=== PATIENT | female | born 1950 | race Caucasian/White ===

== ENCOUNTER 2020-10-12 09:28 | Observation (INO) | payer BC, MEDICARE ==
[~2020-10-12] VITALS: Ht 167.6 cm; Wt 111.6 kg
--- NOTE | 2020-10-12 09:54 | RAD ---
AP portable chest radiograph 10/12/2020 Clinical History: Chest pain. An AP erect portable digital radiograph of the chest was obtained. The cardiac silhouette is mildly enlarged. The thoracic aorta is tortuous. Atherosclerotic calcificat ion of the thoracic aorta is seen. No acute pulmonary infiltrate is noted. No pneumothorax or pleural effusion is seen. Degenerative changes are seen involving the thoracic spine and both shoulders. IMPRESSION: No acute abnormality is seen. Electronically signed by: Gabriel Brown MD (10/12/2020 9:52 AM) [id number]
[2020-10-12] MEDS ORDERED: NITROGLYCERIN OINT 1 GM PACKET. TP ONE (10:00)
[2020-10-12 10:17] LABS: BASO # 0.1 x10^3/uL (0.0-0.2); BASO % 1 % (0-3); EOS # 0.1 x10^3/uL (0.0-0.7); EOS % 1 % (0-3); HEMATOCRIT 39.7 % (36.0-47.0); HEMOGLOBIN 13.2 g/dL (12.0-15.5); LYMPH # 2.1 x10^3/uL (1.0-4.8); LYMPH % 28 % (24-48); MEAN CORPUSCULAR HEMOGLOBIN 29 pg (25-35); MEAN CORPUSCULAR HGB CONC 33 g/dL (31-37); MEAN CORPUSCULAR VOLUME 87 fL (79-100); MONO # 0.6 x10^3/uL (0.0-1.1); MONO % 8 % (0-9); NEUT # 4.6 x10^3/uL (1.8-7.7); NEUT % 62 % (31-73); PLATELET COUNT 292 x10^3/uL (140-400); RED BLOOD COUNT 4.57 x10^6/uL (3.50-5.40); RED CELL DISTRIBUTION WIDTH 13.2 % (11.5-14.5); WHITE BLOOD COUNT 7.4 x10^3/uL (4.0-11.0)
[2020-10-12 10:24] LABS: CALCIUM 9.6 mg/dL (8.5-10.1); CREATININE 0.8 mg/dL (0.6-1.0); GFR 70.9; POTASSIUM 4.1 mmol/L (3.5-5.1)
[2020-10-12 10:30] LABS: ALBUMIN 3.7 g/dL (3.4-5.0); TOTAL BILIRUBIN 0.7 mg/dL (0.2-1.0); TOTAL PROTEIN 7.5 g/dL (6.4-8.2)
[2020-10-12] MEDS ORDERED: hydrALAZINE 20 MG/ML VIAL. IVP ONE (12:15)
--- NOTE | 2020-10-12 12:22 | PHYS DOC ---
Past Medical History Past Medical History: Arthritis, High Cholesterol, Hypertension Past Surgical History: Smoking Status: Never Smoker Alcohol Use: None General Adult EDM: Chief Complaint: CHEST PAIN-CARDIAC NATURE HPI: HPI: Patient is a 70 year old patient who presented to ER due to substernal chest pain that radiated to her left shoulder, associated with trouble breathing with exertion. Symptom of the chest pain described as a pressure and heaviness. Patient has history of hypertension, COVID-19 infection last May. Patient also had COVID-19 vaccine as well. Patient denies any history of blood clot disorder, denies any history of diabetic. Patient denies any history of coronary artery disease.. Patient states the symptoms have been off and on for several weeks but became persistent since last night. Patient denies any cough or fever Review of Systems: Review of Systems: Constitutional: Denies fever or chills. [] Eyes: Denies change in visual acuity. [] HENT: Denies nasal congestion or sore throat. [] Respiratory: Denies cough or shortness of breath. [] Cardiovascular: Positive for chest pain, no edema GI: Denies abdominal pain, nausea, vomiting, bloody stools or diarrhea. [] : Denies dysuria. [] Musculoskeletal: Denies back pain or joint pain. [] Integument: Denies rash. [] Neurologic: Denies headache, focal weakness or sensory changes. [] Endocrine: Denies polyuria or polydipsia. [] Lymphatic: Denies swollen glands. [] Psychiatric: Denies depression or anxiety. [] Heart Score: C/O Chest Pain: Yes HEART Score for Chest Pain: HEART Score for Chest Pain Response (Comments) Value History Moderately Suspicious 1 ECG Nonspecific Repolarizatio 1 Age > 65 2 Risk Factors >3 Risk Factors or Hx CAD 2 Troponin < Normal Limit 0 Total 6 Risk Factors: Risk Factors: DM, Current or recent (<one month) smoker, HTN, HLP, family history of CAD, obesity. Risk Scores: Score 0 - 3: 2.5% MACE over next 6 weeks - Discharge Home Score 4 - 6: 20.3% MACE over next 6 weeks - Admit for Clinical Observation Score 7 - 10: 72.7% MACE over next 6 weeks - Early Invasive Strategies Current Medications: Current Medications Medications (Trade) Dose Ordered Sig/Bonnie Start Time Stop Time Status Last Admin Dose Admin Hydralazine HCl (Apresoline Inj) 10 mg 1X ONCE 10/12/20 12:15 10/12/20 12:16 UNV Nitroglycerin (Nitro-Bid Oint) 1 inch 1X ONCE 10/12/20 10:00 10/12/20 10:14 DC 10/12/20 10:23 1 INCH Allergies: Allergies: Allergies Coded Allergies Type Severity Reaction Last Updated Verified Penicillins Adverse Reaction Mild Diarrhea 10/12/20 Yes Physical Exam: PE: Constitutional: Well developed, well nourished, no acute distress, non-toxic appearance. [] HENT: Normocephalic, atraumatic, bilateral external ears normal, oropharynx moist, no oral exudates, nose normal. [] Eyes: PERRLA, EOMI, conjunctiva normal, no discharge. [] Neck: Normal range of motion, no tenderness, supple, no stridor. [] Cardiovascular:Heart rate regular rhythm, no murmur [] Lungs & Thorax: Bilateral breath sounds clear to auscultation [] Abdomen: Bowel sounds normal, soft, no tenderness, no masses, no pulsatile elizabeth s. [] Skin: Warm, dry, no erythema, no rash. [] Back: No tenderness, no CVA tenderness. [] Extremities: No tenderness, no cyanosis, no clubbing, ROM intact, no edema. [] Neurologic: Alert and oriented X 3, normal motor function, normal sensory function, no focal deficits noted. [] Psychologic: Affect normal, judgement normal, mood normal. [] Current Patient Data: Labs: Laboratory Tests Test 10/12/20 09:50 White Blood Count 7.4 x10^3/uL (4.0-11.0) Red Blood Count 4.57 x10^6/uL (3.50-5.40) Hemoglobin 13.2 g/dL (12.0-15.5) Hematocrit 39.7 % (36.0-47.0) Mean Corpuscular Volume 87 fL (79-100) Mean Corpuscular Hemoglobin 29 pg (25-35) Mean Corpuscular Hemoglobin Concent 33 g/dL (31-37) Red Cell Distribution Width 13.2 % (11.5-14.5) Platelet Count 292 x10^3/uL (140-400) Neutrophils (%) (Auto) 62 % (31-73) Lymphocytes (%) (Auto) 28 % (24-48) Monocytes (%) (Auto) 8 % (0-9) Eosinophils (%) (Auto) 1 % (0-3) Basophils (%) (Auto) 1 % (0-3) Neutrophils # (Auto) 4.6 x10^3/uL (1.8-7.7) Lymphocytes # (Auto) 2.1 x10^3/uL (1.0-4.8) Monocytes # (Auto) 0.6 x10^3/uL (0.0-1.1) Eosinophils # (Auto) 0.1 x10^3/uL (0.0-0.7) Basophils # (Auto) 0.1 x10^3/uL (0.0-0.2) Sodium Level 141 mmol/L (136-145) Potassium Level 4.1 mmol/L (3.5-5.1) Chloride Level 103 mmol/L (98-107) Carbon Dioxide Level 28 mmol/L (21-32) Anion Gap 10 (6-14) Blood Urea Nitrogen 16 mg/dL (7-20) Creatinine 0.8 mg/dL (0.6-1.0) Estimated GFR (Cockcroft-Gault) 70.9 BUN/Creatinine Ratio 20 (6-20) Glucose Level 157 mg/dL (70-99) H Calcium Level 9.6 mg/dL (8.5-10.1) Magnesium Level 2.0 mg/dL (1.8-2.4) Total Bilirubin 0.7 mg/dL (0.2-1.0) Aspartate Amino Transferase (AST) 16 U/L (15-37) Alanine Aminotransferase (ALT) 20 U/L (14-59) Alkaline Phosphatase 108 U/L (46-116) Troponin I Quantitative < 0.017 ng/mL (0.000-0.055) [id number]-Type Natriuretic Peptide 744 pg/mL (0-124) H Total Protein 7.5 g/dL (6.4-8.2) Albumin 3.7 g/dL (3.4-5.0) Albumin/Globulin Ratio 1.0 (1.0-1.7) Lipase 107 U/L (73-393) Laboratory Tests 10/12/20 09:50 Laboratory Tests 10/12/20 09:50 Vital Signs: Vital Signs Date Time Temp Pulse Resp B/P (MAP) Pulse Ox O2 Delivery O2 Flow Rate FiO2 10/12/20 10:23 66 235/97 10/12/20 09:35 98.4 22 97 Room Air 98.4 EKG: EKG: EKG was done at 937, heart rate 66 bpm, sinus rhythm, no ST segment elevation, normal axis. [] Radiology/Procedures: Radiology/Procedures: [][facility] [address] [place] [address] IMAGING REPORT Signed PATIENT: ARACELY CURRY ACCOUNT: [id number] : 1950 LOCATION: ER AGE: 70 SEX: F EXAM STATUS: PRE ER ORD. PHYSICIAN: MIKE TAYLOR DO REASON: CHEST PAIN PROCEDURE: PORTABLE CHEST 1V AP portable chest radiograph 10/12/2020 Clinical History: Chest pain. An AP erect portable digital radiograph of the chest was obtained. The cardiac silhouette is mildly enlarged. The thoracic aorta is tortuous. Atherosclerotic calcification of the thoracic aorta is seen. No acute pulmonary infiltrate is noted. No pneumothorax or pleural effusion is seen. Degenerative changes are seen involving the thoracic spine and both shoulders. IMPRESSION: No acute abnormality is seen. Electronically signed by: Gabriel Brown MD (10/12/2020 9:52 AM) [id number] DICTATED and SIGNED BY: GABRIEL BROWN MD DATE: 10/12/20 [id number] Course & Med Decision Making: Course & Med Decision Making Pertinent Labs and Imaging studies reviewed. (See chart for details) Patient is a 70-year-old female who presented to ER due to chest pain, EKG and cardiac enzyme came back normal so far. Patient was found to be hypertensive. Patient was given medication in the ER to reduce the blood pressure. Her chest pain was improved significantly with nitroglycerin paste on her chest. Patient be admitted to hospital for further evaluation and treatment Dragon Disclaimer: Dragon Disclaimer: This electronic medical record was generated, in whole or in part, using a voice recognition dictation system. Departure Departure Impression: Primary Impression: Chest pain Additional Impression: Hypertension Disposition: 09 ADMITTED INPATIENT Admitting Physician: JOHN (Dr. VERNON) Condition: STABLE Referrals: FLOR SINGLETON MD (PCP) MIKE TAYLOR DO Oct 12, 2020 12:21
[2020-10-12] MEDS ORDERED: BISACODYL 10 MG SUPP.RECT. PR PRN (12:45)
[2020-10-12] MEDS ORDERED: MAGNESIUM HYDROXIDE 2,400 MG/30 ML ORAL.SUSP. PO PRN (12:45)
[2020-10-12] MEDS ORDERED: ONDANSETRON PF 4 MG/2 ML VIAL. IVP PRN (12:45)
[2020-10-12] MEDS ORDERED: NITROGLYCERIN SUBLINGUAL 0.4 MG BOTTLE OF 25. SL PRN (12:45)
[2020-10-12] MEDS ORDERED: CALCIUM CARBONATE 500 MG TAB.CHEW PO PRN (12:45)
[2020-10-12] MEDS ORDERED: ZOLPIDEM 5 MG TABLET. PO PRN (12:45)
[2020-10-12] MEDS ORDERED: MAG HYDROX/ALUMINUM HYD/SIMETH 30 ML ORAL.SUSP PO PRN (12:45)
[2020-10-12] MEDS ORDERED: ACETAMINOPHEN 325 MG TABLET. PO PRN (12:45)
--- NOTE | 2020-10-12 12:52 | PDOC1 ---
History and Physical Date of Admission Date of Admission DATE: 10/12/20 TIME: 12:42 Identification/Chief Complaint Chief Complaint Chest pain Source Source: Patient History of Present Illness History of Present Illness Patient is a 70-year-old female with past medical history hypertension, hyperlipidemia, arthritis, who presents to the ED with complaints of interm ittent chest pain for the past week. She describes her pain more as chest pressure. She also admits to associated shortness of breath with exertion. She denies any leg swelling. In ED her symptoms improved with Nitropaste. Blood pressure was significantly elevated at 235/97 mmHg. She states she has been compliant with her home blood pressure medications; she has a home blood pressure cuff and states blood pressure normally runs between 140s/80 mmHg, however her home blood pressure cuff has not been working recently. Initial troponin <0.[address] changes on EKG. She specifically came to the ED today out of concern for her symptoms and the fact that her son-in-law was treated well in the past by Dr. Yap. Will admit patient for further medical management. Past Medical History Past Medical History Hypertension, hyperlipidemia, arthritis Past Surgical History Past Surgical History: Family History Family History: Heart Disease Social History Smoke: No ALCOHOL: none Drugs: None Current Problem List Problem List Problems Medical Problems: (1) Chest pain Status: Acute (2) Hypertension Status: Acute Current Medications Current Medications Current Medications Nitroglycerin (Nitro-Bid Oint) 1 inch 1X ONCE TP Last administered on 09/25 02/14at 10:23; Start 10/12/20 at 10:00; Stop 10/12/20 at 10:14; Status DC Hydralazine HCl (Apresoline Inj) 10 mg 1X ONCE IVP Last administered on 10/12/20at 12:39; Start 10/12/20 at 12:15; Stop 10/12/20 at 12:16; Status DC Hydralazine HCl (Apresoline Inj) 10 mg PRN Q2MIN PRN IVP HYPERTENSION; Start 10/12/20 at 12:45; Status UNV Ondansetron HCl (Zofran) 4 mg PRN Q6HRS PRN IVP NAUSEA/VOMITING; Start 10/12/20 at 12:45; Status UNV Al Hydroxide/Mg Hydroxide (Mylanta Plus Xs) 30 ml PRN Q3HRS PRN PO HEARTBURN / GAS; Start 10/12/20 at 12:45; Status UNV Calcium Carbonate/ Glycine (Tums) 500 mg PRN Q3HRS PRN PO UPSET STOMACH; Start 10/12/20 at 12:45; Status UNV Zolpidem Tartrate (Ambien) 5 mg PRN QHS PRN PO INSOMNIA, MAY REPEAT IN 1HR; Start 10/12/20 at 12:45; Status UNV Morphine Sulfate (Morphine Sulfate) 2 mg PRN Q1HR PRN IV PAIN; Start 10/12/20 at 12:45; Status UNV Acetaminophen (Tylenol) 650 mg PRN Q6HRS PRN PO Headaches, Temp > 101.5F; Start 10/12/20 at 12:45; Status UNV Magnesium Hydroxide (Milk Of Magnesia) 2,400 mg PRN Q12HR PRN PO CONSTIPATION; Start 10/12/20 at 12:45; Status UNV Bisacodyl (Dulcolax Supp) 10 mg PRN DAILY PRN [place] CONSTIPATION; Start 10/12/20 at 12:45; Status UNV Allergies Allergies: Coded Allergies: Penicillins (Verified Adverse Reaction, Mild, Diarrhea, 10/12/20) ROS Review of System GENERAL: No history of weight change, weakness or fevers. SKIN: No bruising, hair changes or rashes. EYES: No blurred, double or loss of vision. NOSE AND THROAT: No history of nosebleeds, hoarseness or sore throat. HEART: Chest pressure. Denies palpitations. LUNGS: Dyspnea on exertion. Denies cough, hemoptysis, wheezing. GASTROINTESTINAL: Denies nausea, vomiting, abdominal pain. GENITOURINARY: Denies dysuria, frequency, urgency, hematuria. NEUROLOGIC: Denies history of numbness, tingling, tremor or weakness. PSYCHIATRIC: Denies anxiety, denies depression. ENDOCRINE: No history of heat or cold intolerance, polyuria or polydipsia. EXTREMITIES: Denies muscle weakness, joint pain, pain on walking or stiffness. Physical Exam Physical Exam General: Alert, Oriented X3, Cooperative, No acute distress HEENT: PERRLA, EOMI Lungs: Clear to auscultation, Normal air movement Heart: RRR, no murmurs Cardiovascular: Systolic murmur. S1, S2 Abdomen: Normal bowel sounds, Soft, No tenderness Extremities: No clubbing, No cyanosis Skin: No rashes, No significant lesion Neuro: Normal speech, Normal tone, Sensation intact Psych/Mental Status: Mental status NL, Mood NL Vitals Vitals Vital Signs Date Time Temp Pulse Resp B/P (MAP) Pulse Ox O2 Delivery O2 Flow Rate FiO2 10/12/20 12:39 60 209/86 10/12/20 09:35 98.4 22 97 Room Air 98.4 Labs Labs Laboratory Tests Test 10/12/20 09:50 White Blood Count 7.4 x10^3/uL (4.0-11.0) Red Blood Count 4.57 x10^6/uL (3.50-5.40) Hemoglobin 13.2 g/dL (12.0-15.5) Hematocrit 39.7 % (36.0-47.0) Mean Corpuscular Volume 87 fL (79-100) Mean Corpuscular Hemoglobin 29 pg (25-35) Mean Corpuscular Hemoglobin Concent 33 g/dL (31-37) Red Cell Distribution Width 13.2 % (11.5-14.5) Platelet Count 292 x10^3/uL (140-400) Neutrophils (%) (Auto) 62 % (31-73) Lymphocytes (%) (Auto) 28 % (24-48) Monocytes (%) (Auto) 8 % (0-9) Eosinophils (%) (Auto) 1 % (0-3) Basophils (%) (Auto) 1 % (0-3) Neutrophils # (Auto) 4.6 x10^3/uL (1.8-7.7) Lymphocytes # (Auto) 2.1 x10^3/uL (1.0-4.8) Monocytes # (Auto) 0.6 x10^3/uL (0.0-1.1) Eosinophils # (Auto) 0.1 x10^3/uL (0.0-0.7) Basophils # (Auto) 0.1 x10^3/uL (0.0-0.2) Sodium Level 141 mmol/L (136-145) Potassium Level 4.1 mmol/L (3.5-5.1) Chloride Level 103 mmol/L (98-107) Carbon Dioxide Level 28 mmol/L (21-32) Anion Gap 10 (6-14) Blood Urea Nitrogen 16 mg/dL (7-20) Creatinine 0.8 mg/dL (0.6-1.0) Estimated GFR (Cockcroft-Gault) 70.9 BUN/Creatinine Ratio 20 (6-20) Glucose Level 157 mg/dL (70-99) Calcium Level 9.6 mg/dL (8.5-10.1) Magnesium Level 2.0 mg/dL (1.8-2.4) Total Bilirubin 0.7 mg/dL (0.2-1.0) Aspartate Amino Transf (AST/SGOT) 16 U/L (15-37) Alanine Aminotransferase (ALT/SGPT) 20 U/L (14-59) Alkaline Phosphatase 108 U/L (46-116) Troponin I Quantitative < 0.017 ng/mL (0.000-0.055) TR-Jul-S-Type Natriuretic Peptide 744 pg/mL (0-124) Total Protein 7.5 g/dL (6.4-8.2) Albumin 3.7 g/dL (3.4-5.0) Albumin/Globulin Ratio 1.0 (1.0-1.7) Lipase 107 U/L (73-393) Laboratory Tests Test 10/12/20 09:50 White Blood Count 7.4 x10^3/uL (4.0-11.0) Red Blood Count 4.57 x10^6/uL (3.50-5.40) Hemoglobin 13.2 g/dL (12.0-15.5) Hematocrit 39.7 % (36.0-47.0) Mean Corpuscular Volume 87 fL (79-100) Mean Corpuscular Hemoglobin 29 pg (25-35) Mean Corpuscular Hemoglobin Concent 33 g/dL (31-37) Red Cell Distribution Width 13.2 % (11.5-14.5) Platelet Count 292 x10^3/uL (140-400) Neutrophils (%) (Auto) 62 % (31-73) Lymphocytes (%) (Auto) 28 % (24-48) Monocytes (%) (Auto) 8 % (0-9) Eosinophils (%) (Auto) 1 % (0-3) Basophils (%) (Auto) 1 % (0-3) Neutrophils # (Auto) 4.6 x10^3/uL (1.8-7.7) Lymphocytes # (Auto) 2.1 x10^3/uL (1.0-4.8) Monocytes # (Auto) 0.6 x10^3/uL (0.0-1.1) Eosinophils # (Auto) 0.1 x10^3/uL (0.0-0.7) Basophils # (Auto) 0.1 x10^3/uL (0.0-0.2) Sodium Level 141 mmol/L (136-145) Potassium Level 4.1 mmol/L (3.5-5.1) Chloride Level 103 mmol/L (98-107) Carbon Dioxide Level 28 mmol/L (21-32) Anion Gap 10 (6-14) Blood Urea Nitrogen 16 mg/dL (7-20) Creatinine 0.8 mg/dL (0.6-1.0) Estimated GFR (Cockcroft-Gault) 70.9 BUN/Creatinine Ratio 20 (6-20) Glucose Level 157 mg/dL (70-99) Calcium Level 9.6 mg/dL (8.5-10.1) Magnesium Level 2.0 mg/dL (1.8-2.4) Total Bilirubin 0.7 mg/dL (0.2-1.0) Aspartate Amino Transf (AST/SGOT) 16 U/L (15-37) Alanine Aminotransferase (ALT/SGPT) 20 U/L (14-59) Alkaline Phosphatase 108 U/L (46-116) Troponin I Quantitative < 0.017 ng/mL (0.000-0.055) SR-Klo-J-Type Natriuretic Peptide 744 pg/mL (0-124) Total Protein 7.5 g/dL (6.4-8.2) Albumin 3.7 g/dL (3.4-5.0) Albumin/Globulin Ratio 1.0 (1.0-1.7) Lipase 107 U/L (73-393) Images Images PORTABLE CHEST 1V AP portable chest radiograph 10/12/2020 Clinical History: Chest pain. An AP erect portable digital radiograph of the chest was obtained. The cardiac silhouette is mildly enlarged. The thoracic aorta is tortuous. Atherosclerotic calcification of the thoracic aorta is seen. No acute pulmonary infiltrate is noted. No pneumothorax or pleural effusion is seen. Degenerative changes are seen involving the thoracic spine and both shoulders. IMPRESSION: No acute abnormality is seen. VTE Prophylaxis Ordered VTE Prophylaxis Devices: Yes VTE Pharmacological Prophylaxi: No Assessment/Plan Assessment/Plan Chest pain Hypertensive urgency Hyperglycemia Hyperlipidemia Plan: Initial troponin <0.017; will continue to trend. Will order echocardiogram Consultation to cardiology Resume home blood pressure medications and provide IV antihypertensives as needed Morphine, nitroglycerin as needed Telemetry Hemoglobin A1c pending Resume home medications FEN - Cardiac diet PPX - SCDs FULL CODE Dispo - inpatient for above; patient names her daughter as her surrogate decision-maker. Justifications for Admission Other Justification KRISTA VERNON MD Oct 12, 2020 12:51
[2020-10-12] MEDS: MORPHINE SULFATE 2 MG/ML VIAL. IV PRN ×2 (13:37→15:02)
[2020-10-12] MEDS: hydrALAZINE 20 MG/ML VIAL. IVP PRN (15:02)
--- NOTE | 2020-10-12 18:18 | EKG ---
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
--- NOTE | 2020-10-12 18:19 | EKG ---
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
[2020-10-12 20:45] VITALS: BP 168/61
[2020-10-12] MEDS ORDERED: ELDE1CAP PO (22:24)
[2020-10-12] MEDS ORDERED: ASCO500C9 PO (22:24)
[2020-10-12] MEDS ORDERED: ZINC50TA39 PO (22:24)
[2020-10-12] MEDS ORDERED: LOSA100T14 PO (22:24)
[2020-10-12] MEDS ORDERED: ATEN50TA PO (22:24)
[2020-10-12] MEDS ORDERED: LEVO88TA4 PO (22:24)
[2020-10-12 23:00] VITALS: BP 126/52
--- NOTE | 2020-10-12 23:24 | NUR ---
The patient, ARACELY CURRY, 70 y/o, F admitted by KRISTA VERNON MD, was given written information regarding hospital policies, unit procedures and contact persons. Valuables were checked and cell phone, pants, and undergarments. Medications verified and restarted.
[2020-10-13 03:01] VITALS: BP 153/75
[2020-10-13 07:00] VITALS: BP 177/89
[2020-10-13] MEDS ORDERED: LEVOTHYROXINE 88 MCG TABLET PO SCH (07:30)
[2020-10-13] MEDS ORDERED: ASCORBIC ACID 1,000 MG TABLET PO SCH (09:00)
[2020-10-13] MEDS ORDERED: LOSARTAN POTASSIUM 50 MG TABLET. PO SCH (09:00)
[2020-10-13] MEDS ORDERED: ATENOLOL 50 MG TABLET. PO SCH (09:00)
[2020-10-13 11:00] VITALS: BP 183/70
[2020-10-13] MEDS: hydrALAZINE 20 MG/ML VIAL. IVP PRN (11:37)
--- NOTE | 2020-10-13 11:41 | PDOC2 ---
CARDIAC CONSULT DATE OF CONSULT Date of Consult DATE: 10/13/20 TIME: 11:32 REASON FOR CONSULT Reason for Consult: Chest pain REFERRING PHYSICIAN Referring Physician: Dr. Robles SOURCE Source: Chart review, Patient HISTORY OF PRESENT ILLNESS HISTORY OF PRESENT ILLNESS This is a 70 yo female who presented secondary to chest pain. Patient reports tightness began Tuesday. Located central chest. Intermittent. Not worse with exertion. Better with reset. [place] anxious, blood pressure has been elevated. Decided to come to the for further evaluation and treatment. PAST MEDICAL HISTORY Cardiovascular: HTN, Hyperlipidemia Psych: Anxiety Endocrine: Hypothyroidism PAST SURGICAL HISTORY Past Surgical History: No pertinent history FAMILY HISTORY Family History: Cancer, Heart Disease, Hypertension SOCIAL HISTORY Smoke: No ALCOHOL: none Drugs: None Lives: Alone CURRENT MEDICATIONS CURRENT MEDICATIONS Current Medications Medications (Trade) Dose Ordered Sig/Bonnie Route PRN Reason Start Time Stop Time Status Last Admin Dose Admin Hydralazine HCl (Apresoline Inj) 10 mg 1X ONCE IVP 10/12/20 12:15 10/12/20 12:16 DC 10/12/20 12:39 Hydralazine HCl (Apresoline Inj) 10 mg PRN Q2MIN PRN IVP HYPERTENSION 10/12/20 12:45 10/12/20 15:02 Morphine Sulfate (Morphine Sulfate) 2 mg PRN Q1HR PRN IV PAIN 10/12/20 12:45 10/12/20 15:02 Atenolol (Tenormin) 50 mg DAILY PO 10/13/20 09:00 10/13/20 08:28 Levothyroxine Sodium (Synthroid) 88 mcg DAILYAC PO 10/13/20 07:30 10/13/20 05:58 Ascorbic Acid (Vitamin C) 1,000 mg DAILY PO 10/13/20 09:00 10/13/20 08:27 Losartan Potassium (Cozaar) 100 mg DAILY PO 10/13/20 09:00 10/13/20 08:27 ALLERGIES ALLERGIES: Coded Allergies: Penicillins (Verified Adverse Reaction, Mild, Diarrhea, 10/12/20) ROS Review of System 14 point ROS conducted with pertinent positives noted above in HPI. PHYSICAL EXAM General: Alert, Oriented X3, Cooperative, No acute distress HEENT: Atraumatic, Mucous membr. moist/pink Lungs: Clear to auscultation Heart: Regular rate Abdomen: Soft, No tenderness Extremities: No edema, Normal pulses Skin: No significant lesion Neuro: Normal speech, Sensation intact Psych/Mental Status: Mental status NL, Mood NL MUSCULOSKELETAL: Osteoarthritic changes both hands VITALS/I&O VITALS/I&O: Vital Signs Date Time Temp Pulse Resp B/P (MAP) Pulse Ox O2 Delivery O2 Flow Rate FiO2 10/13/20 08:28 72 171/89 10/13/20 07:00 98.5 20 95 Room Air 98.5 I & O 10/12/20 10/12/20 10/13/20 15:00 23:00 07:00 Intake Total 0 ml 300 ml Balance 0 ml 300 ml LABS Lab: Laboratory Tests Test 10/12/20 12:35 10/12/20 14:45 Troponin I Quantitative < 0.017 ng/mL (0.000-0.055) < 0.017 ng/mL (0.000-0.055) ASSESSMENT/PLAN ASSESSMENT/PLAN 1. Chest pain, atypical. AMI ruled out 2. Accelerated hypertension; remains labile 3. Hyperlipidemia; statin 4. Hypothyroidism; on replacement 5. Anxiety Recommendations Echo as ordered Resume home antiHTN therapy Add amlodipine as BP has consistently running elevated hydralazine IV PRN TSH, lipids Probable outpatient ischemic evaluation Supportive care ДМИТРИЙ COOK APRN Oct 13, 2020 11:41
[2020-10-13 12:11] VITALS: BP 161/74
[2020-10-13] MEDS ORDERED: amLODIPine BESYLATE 5 MG TABLET PO SCH (13:00)
[2020-10-13 15:00] VITALS: BP 130/57
--- NOTE | 2020-10-13 15:03 | NUR ---
SS following for discharge planning. SS reviewed pt chart and discussed with pt RN. Pt is from home and is currently on room air. Cardiology following. ECHO today. SS will continue to follow for discharge planning.
--- NOTE | 2020-10-13 16:28 | CARD ---
MR#: [id number] Date of Study: 10/13/2020 Ordering Physician: KRISTA VERNON, Referring Physician: KRISTA VERNON, Tech: Daphne Goldman [facility] APPROVED REPORT EXAM: Two-dimensional and M-mode echocardiogram with Doppler and color Doppler. Other Information Quality : AverageHR: 71bpm Rhythm : NSR INDICATION Hypertension/HCVD RISK FACTORS Hypertension Obesity 2D DIMENSIONS RVDd4.1 (2.9-3.5cm)Left Atrium(2D)4.5 (1.6-4.0cm) IVSd1.3 (0.7-1.1cm)Aortic Root(2D)2.8 (2.0-3.7cm) LVDd4.9 (3.9-5.9cm)LVOT Diameter2.4 (1.8-2.4cm) PWd1.3 (0.7-1.1cm)LVDs2.4 (2.5-4.0cm) FS (%) 50.4 %SV92.0 ml LVEF(%)81.6 (>50%) Aortic Valve AoV Peak Don.195.2cm/sAoV VTI42.8cm AO Peak GR.15.2mmHgLVOT Peak Don.158.4cm/s AO Mean GR.7mmHgAVA (VMAX)3.58cm2 Mitral Valve MV E Pjxlqkwr686.4cm/sMV DECEL XJWV575gr MV A Mxqejboe77.8cm/sE/A Ratio1.8 Tricuspid Valve TR P. Kzsgmyny310ah/sTR Peak Gr.50mmHg LEFT VENTRICLE The left ventricle is normal size. There is mild concentric left ventricular hypertrophy. The left ve ntricular systolic function is normal and the ejection fraction is within normal range. Estimated eje ction fraction 60-65%. There is normal LV segmental wall motion. The left ventricular diastolic funct ion and filling is normal for age. RIGHT VENTRICLE The right ventricle is normal size. There is normal right ventricular wall thickness. The right ventr icular systolic function is normal. ATRIA The left atrium is mildly dilated. The right atrium size is normal. The interatrial septum is intact with no evidence for an atrial septal defect or patent foramen ovale as noted on 2-D or Doppler imagi ng. AORTIC VALVE The aortic valve is normal in structure and function. Doppler and Color Flow revealed no significant aortic regurgitation. There is no significant aortic valvular stenosis. MITRAL VALVE The mitral valve is normal in structure and function. There is no evidence of mitral valve prolapse. There is no mitral valve stenosis. Doppler and Color-flow revealed mild mitral regurgitation. TRICUSPID VALVE The tricuspid valve is normal in structure and function. Doppler and Color Flow revealed trace to mil d tricuspid regurgitation. Estimated PAP 55 mmHg. There is no tricuspid valve stenosis. PULMONIC VALVE Doppler and Color Flow revealed no pulmonic valvular regurgitation. There is no pulmonic valvular janice nosis. GREAT VESSELS The aortic root is normal in size. The ascending aorta is normal in size. The IVC is normal in size a nd collapses >50% with inspiration. PERICARDIAL EFFUSION There is no evidence of significant pericardial effusion. Critical Notification Critical Value: No <Conclusion> The left ventricular systolic function is normal and the ejection fraction is within normal range. E stimated ejection fraction 60-65%. There is normal LV segmental wall motion. Doppler and Color Flow revealed trace to mild tricuspid regurgitation. Estimated PAP 55 mmHg. Signed by : Murtaza Nichole, Electronically Approved : 10/13/2020 16:27:45
[2020-10-13] MEDS ORDERED: hydrALAZINE 20 MG/ML VIAL. IVP PRN (17:00)
--- NOTE | 2020-10-13 17:00 | NUR ---
TALKED WITH ДМИТРИЙ COOK. OK TO DISCHARGE PT WITH ECHO RESULTS PENDING. SHE WILL PUT FOLLOW UP APPTS IN CHART. DR LOVE PAGED.
[2020-10-13] MEDS ORDERED: AMLO-186 PO (17:14)
--- NOTE | 2020-10-13 17:15 | DISCH ---
DISCHARGE INSTRUCTIONS Condition on Discharge Condition on Discharge: Stable Activity After Discharge Activity Instructions for Disc: Resume previous activity Lifting Instructions after Dis: No pulling or pushing Driving Instructions after Dis: Do not drive today Diet after Discharge Diet after Discharge: Cardiac Checks after Discharge Checks after discharge: Check blood press - daily Follow-Up Follow up with: PCP within 2 weeks of discharge Follow Up With: Cardiology as needed LOPEZ LOVE MD Oct 13, 2020 17:15
--- NOTE | 2020-10-13 17:48 | NUR ---
Discharge Note: [facility] Discharge instructions and discharge home medications reviewed with Patient and a copy given. All questions have been answered and understanding verbalized. The following instructions and handouts were given: CHEST PAIN, HTN Discontinued lines and drains: Peripheral IV intact. Patient discharged to Home or Self Care with Family Member via Wheelchair
[2020-10-14 01:10] LABS: HEMOGLOBIN A1C 6.4 % (4.8-5.6)
--- NOTE | 2020-10-14 22:53 | PDOC3 ---
[facility]-Discharge Summary Discharge Diagnosis: Discharge Diagnosis: 1. Chest pain, atypical. AMI ruled out 2. Accelerated hypertension; remains labile 3. Hyperlipidemia; statin 4. Hypothyroidism; on replacement 5. Anxiety Consults: Consults: Cardiac recs: Resume home antiHTN therapy Add amlodipine as BP has consistently running elevated TSH, lipids Probable outpatient ischemic evaluation Supportive care Hospital Course: Hospital Course: 70-year-old female with past medical history hypertension, hyperlipidemia, arthritis, who presents to the ED with complaints of intermittent chest pain for the past week. She describes her pain more as chest pressure. She also admits to associated shortness of breath with exertion. She denies any leg swelling. In ED her symptoms improved with Nitropaste. Blood pressure was significantly elevated at 235/97 mmHg. She states she has been compliant with her home blood pressure medications; she has a home blood pressure cuff and states blood pressure normally runs between 140s/80 mmHg, however her home blood pressure cuff has not been working recently. Initial troponin <0.[address] changes on EKG. She specifically came to the ED today out of concern for her symptoms and the fact that her son-in-law was treated well in the past by Dr. Yap. Will admit patient for further medical management. Disposition: Disposition/Orders: D/C to Home Activity: Activity: Resume previous activity Diet: Diet: Cardiac Medications: Home Meds Active Scripts Amlodipine Besylate (AMLODIPINE BESYLATE) 5 Mg Tablet, 5 MG PO DAILY for HIGH BP for 30 Days, #30 TAB Prov:LOPEZ LOVE MD 10/13/20 Reported Medications Elderberry Fruit and Flower (Black Elderberry 575 mg Cap) 1 Each Capsule, 1 EACH PO DAILY for Supplement, CAP 10/12/20 Ascorbic Acid (Vitamin C) 500 Mg Capsule, 1000 MG PO DAILY for supplement, CAP 10/12/20 Zinc (ZINC) 50 Mg Tablet, 1 TAB PO DAILY for supplement for 30 Days, #30 TAB 0 Refills 10/12/20 Levothyroxine Sodium (LEVOTHYROXINE SODIUM) 88 Mcg Tablet, 87 MCG PO DAILYAC for THYROID SUPPLEMENT, #30 TAB 0 Refills 10/12/20 Losartan Potassium (LOSARTAN POTASSIUM) 100 Mg Tablet, 100 MG PO DAILY for HYPERTENSION, TAB 10/12/20 Atenolol (ATENOLOL) 50 Mg Tablet, 1 TAB PO DAILY for HTN, #30 TAB 5 Refills 10/12/20 Scheduled Amlodipine Besylate (Amlodipine Besylate), 5 MG PO DAILY Ascorbic Acid (Vitamin C), 1,000 MG PO DAILY, (Reported) Atenolol (Atenolol), 1 TAB PO DAILY, (Reported) Elderberry Fruit and Flower (Black Elderberry 575 mg Cap), 1 EACH PO DAILY, (Reported) Levothyroxine Sodium (Levothyroxine Sodium), 87 MCG PO DAILYAC, (Reported) Losartan Potassium (Losartan Potassium), 100 MG PO DAILY, (Reported) Zinc (Zinc), 1 TAB PO DAILY, (Reported) Total Time: Total Time: Total time spent was 35 minutes in preparing scripts, discharge planning with SW and RN, and preparing this discharge summary. Patient seen and examined on day of discharge. Justicifation of Admission Dx: Justifications for Admission: Justification of Admission Dx: Yes Angina: New-Onset LOPEZ LOVE MD Oct 14, 2020 22:53
== END 2020-10-13 17:55 | disposition home or self-care (01) ==
LOC: ER 09:28 → ED HOLD 13:36 → INTOOBSV 13:36 → 2 SOUTH 20:36
PROVIDERS: ADMIT Family Medicine; ATTEND Family Medicine
DX: R07.89 Other chest pain (principal); I16.0 Hypertensive urgency; R73.9 Hyperglycemia, unspecified; E78.5 Hyperlipidemia, unspecified; M19.90 Unspecified osteoarthritis, unspecified site; E03.9 Hypothyroidism, unspecified; E78.00 Pure hypercholesterolemia, unspecified; F41.9 Anxiety disorder, unspecified; I70.0 Atherosclerosis of aorta; Z98.891 History of uterine scar from previous surgery
CPT/HCPCS: 36415; 71045; 80053; 83036; 83690; 83735; 83880; 84484; 85025; 93005; 93306; 96374; 96375; 96376; 99285; G0378; J0360; J2270; G0379

== ENCOUNTER 2021-04-28 06:48 | Outpatient (CLI) | payer BC ==
[2021-04-28] VITALS (15 sets, daily range): BP systolic 140–179; BP diastolic 57–78
[~2021-04-28] VITALS: Ht 162.6 cm; Wt 106.4 kg
[~2021-04-28 06:48] MED LIST: AMLO-186 PO; ASCO500C9 PO; ATEN50TA PO; ELDE1CAP PO; LEVO88TA4 PO; LOSA100T14 PO; ZINC50TA39 PO
[2021-04-28] MEDS ORDERED: IODIXANOL 320 MG/ML 100 ML VIAL. ONE (07:36)
[2021-04-28] MEDS ORDERED: LIDOCAINE 1% PF 2 ML VIAL. ONE (07:36)
[2021-04-28] MEDS ORDERED: OMEP40CA7 PO (07:58)
[2021-04-28] MEDS ORDERED: ATOR20TA PO (07:58)
[2021-04-28] MEDS ORDERED: CHOL5000 PO (07:58)
[2021-04-28] MEDS ORDERED: CALC-71 PO (07:58)
[2021-04-28 08:07] LABS: CALCIUM 9.2 mg/dL (8.5-10.1); CREATININE 0.8 mg/dL (0.6-1.0); GFR 70.7; POTASSIUM 4.1 mmol/L (3.5-5.1)
[2021-04-28] MEDS ORDERED: VERAPAMIL 5 MG/2 ML VIAL. ONE (08:25)
[2021-04-28] MEDS ORDERED: MIDAZOLAM HCL/PF 2 MG/2 ML VIAL. ONE (08:25)
[2021-04-28] MEDS ORDERED: NITROGLYCERIN 200 MCG/2 ML SYRINGE FOR CATH/VASC LAB. ONE (08:25)
[2021-04-28] MEDS ORDERED: HEPARIN for IV BOLUS 10,000 UNIT/10 ML VIAL. ONE (08:25)
[2021-04-28] MEDS ORDERED: fentaNYL PF VIAL 100 MCG/2 ML VIAL ONE (08:25)
[2021-04-28 08:30] LABS: HEMATOCRIT 39.2 % (36.0-47.0); HEMOGLOBIN 12.8 g/dL (12.0-15.5); RED BLOOD COUNT 4.48 x10^6/uL (3.50-5.40); RED CELL DISTRIBUTION WIDTH 13.3 % (11.5-14.5); WHITE BLOOD COUNT 7.3 x10^3/uL (4.0-11.0)
[2021-04-28 08:32] LABS: PROTHROMBIN TIME PATIENT 12.5 SEC (11.7-14.0)
[2021-04-28] MEDS ORDERED: BIVALIRUDIN 250 MG VIAL. IV ONE ×2 (08:58→09:15)
[2021-04-28] MEDS ORDERED: TICAGRELOR 90 MG TABLET. ONE (09:12)
[2021-04-28] MEDS ORDERED: ASPIRIN 325 MG TABLET ONE (09:12)
[2021-04-28] MEDS ORDERED: NITROGLYCERIN 200 MCG/2 ML SYRINGE FOR CATH/VASC LAB. IART ONE (09:15)
[2021-04-28] MEDS ORDERED: fentaNYL PF VIAL 100 MCG/2 ML VIAL IV ONE (09:15)
[2021-04-28] MEDS ORDERED: HEPARIN for IV BOLUS 10,000 UNIT/10 ML VIAL. IART ONE (09:15)
[2021-04-28] MEDS ORDERED: VERAPAMIL 5 MG/2 ML VIAL. IART ONE (09:15)
[2021-04-28] MEDS ORDERED: LIDOCAINE 1% PF 2 ML VIAL. INJ ONE (09:15)
[2021-04-28] MEDS ORDERED: ASPIRIN 325 MG TABLET PO ONE (09:15)
[2021-04-28] MEDS ORDERED: TICAGRELOR 90 MG TABLET. PO ONE (09:15)
[2021-04-28] MEDS ORDERED: MIDAZOLAM HCL/PF 2 MG/2 ML VIAL. IV ONE (09:15)
[2021-04-28] MEDS ORDERED: IODIXANOL 320 MG/ML 100 ML VIAL. IART ONE (09:15)
--- NOTE | 2021-04-28 09:28 | PDOC ---
MODERATE SEDATION ASSESSMENT RISKS/ALTERNATIVES Risks/Alternatives Risks and alternatives of this type of sedation and procedure discussed with: RISK/ALTERNATIVES: Patient H & P ON CHART H & P H & P on chart and reviewed for co-morbid conditions and appropriate labs. H&P ON CHART: Yes STATUS PREG STATUS ASSESSED: Yes MEDS/ALLERGIES REVIEWED Meds/Allergies Reviewed Medications and Allergies including time and route of recently administered narcotics and sedatives. MEDS/ALLERGIES REVIEWED: Yes ASA RATING ASA RATING: II AIRWAY ASSESSMENT Airway Assessment Airway patency, oral function limitations, presence of caps, crowns, dentures, partials, and ability to extend neck assessed. AIRWAY ASSESSMENT: Yes MALLAMPATI SCORE MALLAMPATI SCORE: II PRE-SEDATION ASSESSMENT PRE-SEDATION ASSESSMENT: Yes PITER MARQUES MD Apr 28, 2021 09:28
[2021-04-28] MEDS ORDERED: NITROGLYCERIN SUBLINGUAL 0.4 MG BOTTLE OF 25. SL PRN (09:30)
[2021-04-28] MEDS ORDERED: IV 1/2 NORMAL SALINE 1,000 ML IV SCH (09:30)
--- NOTE | 2021-04-28 09:44 | CARD ---
MR#: [id number] Date of Study: 04/28/2021 Ordering Physician: PITER YAP, Referring Physician: PITER YAP, Tech: RT Isabelle(R) APPROVED REPORT Technologist: RT Isabelle(R) Nurse: Gena Ballard RN Procedure(s) performed: 1. Left heart catheterization, selective coronary angiography and left ventr iculography via right transradial approach 2. Successful PCI/drug-eluting stent placement to the left anterior descending artery Sedation Time: 45 Minutes Dose: 90 Gycm2 Contrast: 144 mL Visipaque Fluoro Time: 10.1 Minutes INDICATION The indication(s) include : Chest pain and positive stress test. [facility] Clinical Frailty Scale [facility] Clinical Frailty Scale: Managing Well Heart Failure Heart Failure: No CASE TECHNIQUE IV conscious sedation was used throughout procedure with appropriate monitoring and was performed in the presence of a registered nurse who was an independent trained observer other than the physician p erforming the procedure. During this case, Fluoroscopy and low osmolar contrast were used for imaging . Specimen(s) Removed: No Estimated Blood loss: 15 cc's. PROCEDURE NARRATIVE After explaining the risks, benefits and alternative options, informed consent was obtained from aida ent. Patient was brought to the cardiac [employer] and right wrist was prepped and draped in the usual fashion after confirming a positive modified Bossman's test. Arterial access was obtained in the righ t radial artery and a 6 [place]ian sheath was inserted. 6 [place] Diego catheter was used to perform ziyad ective angiography of the left and right coronary arteries. 6 [place]ian pigtail catheter was used to pe rform left ventriculography. The following findings were noted: FINDINGS 1. Hemodynamics: Elevated left ventricular end-diastolic pressure of 32 mmHg consistent with acute o n chronic diastolic heart failure. No pullback gradient across the aortic valve. 2. Left ventriculography: Normal left ventricle systolic function with ejection fraction estimated at 60%. No significant mitral regurgitation seen. 3. Coronary angiography: a. The left main coronary artery arose from the left sinus of Valsalva, gave rise to the left anteri or descending and left circumflex arteries and did not show any significant stenosis. b. The left anterior descending artery showed 90% stenosis in the midsegment. A small caliber diago nal branch showed 80% stenosis in the proximal segment. c. The left circumflex artery did not show any significant stenosis. d. The right coronary artery was a large and dominant vessel arising from the right sinus of Valsalv a that did not show any significant stenosis. INTERVENTION The left main coronary artery was engaged with a 6 [place] EBU 3.5 guide catheter. The stenosis in th e mid segment of the left anterior descending artery was crossed with a 0.014 inch Language Cloud derik dewire. This was predilated with a 3.0 x 12 mm Euphora balloon following which this was successfully treated with a 3.5 x 15 mm resolute Antony drug-eluting stent. Follow-up angiography showed resolutio n of the stenosis to 0% with LYNNETTE-3 distal flow. Patient tolerated the procedure well. Hemostasis w as achieved using TR band. There were no immediate complications. LYNNETTE Flow LYNNETTE Flow (Pre-Intervention): LYNNETTE-2 LYNNETTE Flow (Post-Intervention): LYNNETTE-3 Conclusion 1. Severe single-vessel coronary artery disease involving the left anterior descending artery 2. Successful PCI/drug-eluting stent placement to the left anterior descending artery 3. Elevated left ventricular end-diastolic pressure consistent with acute on chronic diastolic heart failure 4. Normal left ventricular systolic function with ejection fraction estimated at 60% Recommendations 1. Aspirin 81 mg daily 2. Ticagrelor 90 mg twice daily 3. Cardiovascular risk factor modification Signed by : Piter Yap, Electronically Approved : 04/28/2021 09:44:18
[2021-04-28] MEDS ORDERED: CONTRAST GIVEN. MC PRN (10:00)
[2021-04-28] MEDS ORDERED: ATOR40TA59 PO ×2 (11:18→11:20)
--- NOTE | 2021-04-28 12:12 | NUR ---
Patient's TR band removed, no bleeding at site. Bandage applied. PIV removed. VS stable. Brilinta, ASA, Atorvastatin called in to [facility] as requested by patient. Instructions provided on sedation, site care. Patient and daughter verbalized understanding. Daughter driving home. All belongings taken w/ patient at time of d/c.
[2021-04-28] MEDS ORDERED: ATORVASTATIN CALCIUM 40 MG TABLET. PO SCH (21:00)
[2021-04-29] MEDS ORDERED: ASPIRIN ENTERIC COATED 325 MG TABLET.DR. PO SCH (08:00)
[2021-04-29] MEDS ORDERED: ASPIRIN ENTERIC COATED 81 MG TABLET.DR. PO SCH (08:00)
[2021-04-29] MEDS ORDERED: TICAGRELOR 90 MG TABLET. PO SCH (09:00)
== END 2021-04-28 12:20 | disposition home or self-care (01) ==
LOC: CCL 06:48
PROVIDERS: ATTEND Internal Medicine Cardiovascular Disease
DX: R07.9 Chest pain, unspecified (principal); R93.1 Abnormal findings on diagnostic imaging of heart and coronary circulation; I25.10 Atherosclerotic heart disease of native coronary artery without angina pectoris; I11.0 Hypertensive heart disease with heart failure; I50.33 Acute on chronic diastolic (congestive) heart failure; E78.00 Pure hypercholesterolemia, unspecified; E11.9 Type 2 diabetes mellitus without complications; E03.9 Hypothyroidism, unspecified; E66.9 Obesity, unspecified; F41.9 Anxiety disorder, unspecified; Z79.899 Other long term (current) drug therapy; Z98.890 Other specified postprocedural states; Z88.1 Allergy status to other antibiotic agents
CPT/HCPCS: 36415; 80048; 85027; 85610; 92928; 93458; 99152; 99153; C1725; C1769; C1874; C1887; C1894; J0583; J1644; J2250; J3010; J3490; Q9967